=== PATIENT | male | born 1935 | race Caucasian/White ===

== ENCOUNTER 2017-10-18 10:03 | Day surgery (SDC) | payer MEDICARE, OTHER ==
[2017-10-18] VITALS (649 sets, daily range): BP systolic 140–164; BP diastolic 75–99; PULSE 59–76; TEMP 98–98.8; O2SAT 77–100
[~2017-10-18] VITALS: Ht 172.8 cm; Wt 75.8 kg
[~2017-10-18 10:03] MED LIST: AMITRIPTYLINE H10 M1 PO; B-12 500 MCG PO; CEFTIN500 MG PO; FERROUS SU325 MG/TAB PO; FOLIC ACID PO; MIRAPEX PO; MVI; PAIN MED; PYRIDIUM 100MG100 MG PO; RANITIDINE HYD150 MG PO; VITAMIN C500 MG PO; ZANTAC 150MG T150 MG PO; ZOCOR 20MG20 MG PO
[2017-10-18 10:27] LABS: HEMATOCRIT 41.9 % (42.0-52.0); HEMOGLOBIN 14.1 g/dl (13.5-18.0); MEAN CELL VOLUME 91 fl (80.0-100.0); MEAN CORPUSCULAR HEMOGLOBIN 31 pg (27.0-31.0); MEAN CORPUSCULAR HGB CONC 34 g/dl (33.0-37.0); MEAN PLATELET VOLUME 9.3 fl (7.4-10.4); PLATELET COUNT 201 K/mm3 (130-400); RED BLOOD COUNT 4.61 M/mm3 (4.20-5.60); REDCELL DISTRIBUTION WIDTH-CV 12.4 % (11.5-14.5)
[2017-10-18 10:36] LABS: CALCIUM 9.4 mg/dL (8.4-10.2); POTASSIUM 4.5 mmol/L (3.4-5.0)
[2017-10-18] MEDS ORDERED: PLAVIX 75MG TAB75 MG PO (10:42)
[2017-10-18] MEDS ORDERED: LOPRESSOR HCT 21 TA1 PO (10:42)
[2017-10-18] MEDS ORDERED: IMDUR 30MG30 MG/TAB PO (10:43)
[2017-10-19] VITALS (649 sets, daily range): BP systolic 141–152; BP diastolic 60–81; PULSE 60–84; TEMP 97.2–97.7; O2SAT 76–100
[2017-10-19 05:57] LABS: BASO % 0.3 % (0.0-2.0); EOS # 0.2 (0.0-0.7); EOS % 3.2 % (0-4.0); GRAN # 4.5 (1.4-6.5); GRAN % 64.4 % (42.2-75.2); HEMATOCRIT 37.4 % (42.0-52.0); HEMOGLOBIN 12.7 g/dl (13.5-18.0); LYMPH # 1.5 (1.2-3.4); LYMPH % 20.9 % (20.0-51.0); MEAN CELL VOLUME 91 fl (80.0-100.0); MEAN CORPUSCULAR HEMOGLOBIN 31 pg (27.0-31.0); MEAN CORPUSCULAR HGB CONC 34 g/dl (33.0-37.0); MEAN PLATELET VOLUME 9.5 fl (7.4-10.4); MONO # 0.8 (0.1-0.6); MONO % 11.1 % (1.7-9.3); PLATELET COUNT 170 K/mm3 (130-400); RED BLOOD COUNT 4.12 M/mm3 (4.20-5.60); REDCELL DISTRIBUTION WIDTH-CV 12.4 % (11.5-14.5)
[2017-10-19 06:14] LABS: CREATININE, serum 0.9 mg/dL (0.66-1.25); POTASSIUM 4.5 mmol/L (3.4-5.0)
== END 2017-10-19 12:12 | disposition home or self-care (01) ==
LOC: COL.CAR 10:03 → ICU 12:20 → COL.CAR 10-19 12:12
PROVIDERS: Internal Medicine Cardiovascular Disease; Internal Medicine Interventional Cardiology
DX: I25.119 Atherosclerotic heart disease of native coronary artery with unspecified angina pectoris (principal); D46.4 Refractory anemia, unspecified; Z79.82 Long term (current) use of aspirin; M79.604 Pain in right leg; M79.605 Pain in left leg; I44.7 Left bundle-branch block, unspecified; Z82.49 Family history of ischemic heart disease and other diseases of the circulatory system; E78.5 Hyperlipidemia, unspecified; I25.2 Old myocardial infarction; Z68.26 Body mass index [BMI] 26.0-26.9, adult
CPT/HCPCS: OP; C9600; J2250; J3010; Q9967

== ENCOUNTER 2020-02-03 08:30 | Outpatient (RCR) | payer MEDICARE, OTHER ==
[2020-01-01 12:57] VITALS: BP 123/71; PULSE 83; TEMP 98.3
[2020-01-02 08:17] VITALS: BP 116/68; PULSE 86; TEMP 98.1
[2020-01-03 08:17] VITALS: BP 109/67; PULSE 83; TEMP 99.2
[2020-01-04 08:30] VITALS: BP 130/75; PULSE 66; TEMP 98.4
[2020-01-04 09:25] LABS: MEAN CELL VOLUME 92 fl (80.0-100.0); MEAN CORPUSCULAR HGB CONC 32 g/dl (33.0-37.0); MEAN PLATELET VOLUME 8.3 fl (7.4-10.4); PLATELET COUNT 306 K/mm3 (130-400)
[2020-01-04 09:51] LABS: ERYTHROCYTE SEDIMENTATION RATE 91 mm/hr (0-30); HEMATOCRIT 27.7 % (42.0-52.0); HEMOGLOBIN 8.9 g/dl (13.5-18.0); MEAN CORPUSCULAR HEMOGLOBIN 30 pg (27.0-31.0)
[2020-01-05 08:39] VITALS: BP 109/69; PULSE 78; TEMP 98.3
[2020-01-06 11:40] VITALS: BP 111/78; PULSE 92; TEMP 98.3
[2020-01-07 08:49] VITALS: BP 109/67; PULSE 84; TEMP 97.9
--- NOTE | 2020-01-08 08:30 | NUR ---
PICC intact right upper arm with sterile dressing change done with insertion site cleansed with chloraprep x 1, chlorhexidine impregnated disk applied, skin prep, stat lock, and tegaderm applied. no signs or symptoms of IV complications noted. no concerns voiced. re-wrapped with dipika to protect catheter.
[2020-01-08 08:34] VITALS: BP 130/69; PULSE 75; TEMP 98.2
[2020-01-09 08:36] VITALS: BP 139/80; PULSE 89; TEMP 97.9
[2020-01-10 09:13] VITALS: BP 121/64; PULSE 68; TEMP 98
[2020-01-11 08:52] VITALS: BP 148/83; PULSE 73; TEMP 98.9
[2020-01-12 08:58] VITALS: BP 131/77; PULSE 74; TEMP 98.7
[2020-01-13 09:05] VITALS: BP 134/69; PULSE 65; TEMP 97.6
[2020-01-14 08:40] VITALS: BP 114/70; PULSE 73; TEMP 98.6
[2020-01-15 08:34] VITALS: BP 107/62; PULSE 73; TEMP 98.3
[2020-01-16 09:26] VITALS: BP 110/48; PULSE 77; TEMP 98.1
[2020-01-17 08:20] VITALS: BP 112/69; PULSE 78; TEMP 97.7
[2020-01-18 08:30] VITALS: BP 121/73; PULSE 73; TEMP 98.6
[2020-01-18 08:53] LABS: MEAN CELL VOLUME 92 fl (80.0-100.0); MEAN CORPUSCULAR HGB CONC 32 g/dl (33.0-37.0); MEAN PLATELET VOLUME 8.5 fl (7.4-10.4); PLATELET COUNT 388 K/mm3 (130-400); RED BLOOD COUNT 3.31 M/mm3 (4.20-5.60); REDCELL DISTRIBUTION WIDTH-CV 14.5 % (11.5-14.5)
[2020-01-18 09:10] LABS: HEMATOCRIT 30.3 % (42.0-52.0); HEMOGLOBIN 9.6 g/dl (13.5-18.0); MEAN CORPUSCULAR HEMOGLOBIN 29 pg (27.0-31.0)
[2020-01-18 09:39] LABS: ERYTHROCYTE SEDIMENTATION RATE 48 mm/hr (0-30)
[2020-01-19 08:46] VITALS: BP 132/81; PULSE 79; TEMP 98.7
[2020-01-20 08:55] VITALS: BP 127/76; PULSE 77; TEMP 98.9
[2020-01-21 08:31] VITALS: BP 168/90; PULSE 80; TEMP 98.5
[2020-01-22 09:10] VITALS: BP 133/75; PULSE 70; TEMP 98.3
[2020-01-23 08:30] VITALS: BP 118/71; PULSE 74; TEMP 98.1
[2020-01-24 08:40] VITALS: BP 122/71; PULSE 71; TEMP 98.6
[2020-01-25 08:44] VITALS: BP 153/81; PULSE 74; TEMP 98.3
[2020-01-26 08:30] VITALS: BP 165/81; PULSE 65; TEMP 98.8
[2020-01-27 08:36] VITALS: BP 165/81; PULSE 69; TEMP 98
[2020-01-28 08:33] VITALS: BP 145/74; PULSE 68; TEMP 97.9
--- NOTE | 2020-01-29 08:30 | NUR ---
PICC intact right upper arm with sterile dressing change done with insertion site cleansed with chloraprep x 1, chlorhexidine impregnated disk applied, skin prep, stat lock, and tegaderm applied. no signs or symptoms of IV complications noted. no concerns voiced. re-wrapped with dipika to protect catheter. to continue with cares in [place]. voiced understanding of instructions.
[2020-01-29 08:40] VITALS: BP 155/82; PULSE 61; TEMP 98.4
[2020-01-30 08:40] VITALS: BP 143/75; PULSE 69; TEMP 98.6
[2020-01-31 08:35] VITALS: BP 149/76; PULSE 66; TEMP 98.4
[2020-02-01 08:30] VITALS: BP 148/88; PULSE 65; TEMP 98.5
[2020-02-02 08:52] VITALS: BP 176/108; PULSE 65; TEMP 98.4
[~2020-02-03] VITALS: Ht 167.6 cm; Wt 67.7 kg
[~2020-02-03 08:30] MED LIST changes: +ALDACTONE 25MG25 M1 PO; +ASPIRIN 32325 MG/TA1 PO; +CRESTOR20 MG PO; +DIGITEK0.25 MG PO; +ENTRESTO 97 MG1 EACH PO; +FOLIC ACID 11 MG/TA1 PO; +IMDUR 30MG30 MG/TAB PO; +LOPRESSOR HCT 21 TA1 PO; +NATURAL IRON65 MG; +PLAVIX 75MG TAB75 MG PO; +PRILOSEC 20MG20 MG PO; +RANEXA 500MG T500 MG PO; +ROCEPHIN 2GM VIAL21 IJ; +SEROQUEL 2525 MG/TAB PO; +TOPROL XL 25MG25 MG PO; +TOPROL XL 50MG50 MG PO; +TYLENOL 500MG500 MG PO; +ULTRAM 50MG TAB50 MG PO
[2020-02-03 08:40] VITALS: BP 151/73; PULSE 63; TEMP 98.2
[2020-02-03 09:15] LABS: BASO % 0.4 % (0.0-2.0); EOS # 0.1 (0.0-0.7); EOS % 2.8 % (0-4.0); GRAN # 2.7 (1.4-6.5); GRAN % 58.7 % (42.2-75.2); HEMOGLOBIN 10.1 g/dl (13.5-18.0); LYMPH # 1.4 (1.2-3.4); LYMPH % 28.9 % (20.0-51.0); MEAN CELL VOLUME 90 fl (80.0-100.0); MEAN CORPUSCULAR HEMOGLOBIN 28 pg (27.0-31.0); MEAN CORPUSCULAR HGB CONC 32 g/dl (33.0-37.0); MEAN PLATELET VOLUME 8.6 fl (7.4-10.4); MONO # 0.4 (0.1-0.6); PLATELET COUNT 246 K/mm3 (130-400); RED BLOOD COUNT 3.56 M/mm3 (4.20-5.60); REDCELL DISTRIBUTION WIDTH-CV 14.8 % (11.5-14.5)
[2020-02-03 09:25] LABS: HEMATOCRIT 31.9 % (42.0-52.0)
[2020-02-03 10:12] LABS: ERYTHROCYTE SEDIMENTATION RATE 1 mm/hr (0-30)
[2020-03-22] MEDS ORDERED: DOXYCYCLINE HY100 MG PO (09:09)
[2020-03-22] MEDS ORDERED: PRILOSEC 20MG20 MG PO (09:10)
== END 2020-02-04 07:00 | disposition home or self-care (01) ==
LOC: EUO 08:30
PROVIDERS: Orthopaedic Surgery
DX: Z95.828 Presence of other vascular implants and grafts (principal)
CPT/HCPCS: C1751; J0696

== ENCOUNTER 2020-03-17 07:30 | Inpatient (IN) | payer MEDICARE, OTHER ==
[~2020-03-17] VITALS: Ht 172.7 cm; Wt 66.1 kg
[2020-03-17 15:39] VITALS: BP 124/75; PULSE 88; TEMP 98.5
[2020-03-17] MEDS ORDERED: NAPRELAN500 MG PO (16:18)
--- NOTE | 2020-03-17 16:53 | NUR ---
Patient arrived to floor with admissions via wheelchair. Patient is alert and oriented, answers questions appropriately. Patient is able to paricipate in admission assessment and answer admssion questions. Called SUDHAKAR and reported patient had arrived and was ready for PICC placement. Patient says he has had a PICC in the past and is agreeable to having one placed for this stay. Patient reports that his pain is well controlled at this time and denies further needs, call light within reach.
[2020-03-17 17:42] LABS: BASO % 0.2 % (0.0-2.0); EOS % 0.5 % (0-4.0); GRAN # 4.4 (1.4-6.5); GRAN % 68.8 % (42.2-75.2); HEMOGLOBIN 11.5 g/dl (13.5-18.0); LYMPH # 1.3 (1.2-3.4); LYMPH % 20.8 % (20.0-51.0); MEAN CELL VOLUME 87 fl (80.0-100.0); MEAN CORPUSCULAR HEMOGLOBIN 28 pg (27.0-31.0); MEAN CORPUSCULAR HGB CONC 33 g/dl (33.0-37.0); MEAN PLATELET VOLUME 8.6 fl (7.4-10.4); MONO # 0.6 (0.1-0.6); MONO % 9.4 % (1.7-9.3); PLATELET COUNT 303 K/mm3 (130-400); RED BLOOD COUNT 4.06 M/mm3 (4.20-5.60); REDCELL DISTRIBUTION WIDTH-CV 15.2 % (11.5-14.5)
[2020-03-17 17:44] LABS: HEMATOCRIT 35.4 % (42.0-52.0)
[2020-03-17 17:45] LABS: INR 1.2 (0.8-3.0); PROTHROMBIN TIME 13.8 SECONDS (9.7-12.8)
[2020-03-17 17:57] LABS: CALCIUM 9.3 mg/dL (8.4-10.2); CREATININE, serum 1.1 (0.66-1.25); POTASSIUM 4.8 mmol/L (3.4-5.0)
--- NOTE | 2020-03-17 18:43 | NUR ---
Vancomycin Initial Dosing Pharmacy Note Ordering provider: Iván Taylor MD Indication/duration: JOINT INFECTION LABS: WBC 6.3, SCr 1.1, CrCl ~40 Recommendation: vancomycin 15 mg/kg Loading dose: 1.25 grams Maintenance dose: 1 gram every 24 hours Trough goal: 15-20 ug/mL. trough 03/20 @ 9709
[2020-03-17 19:34] VITALS: BP 134/72; PULSE 86; TEMP 97.4
--- NOTE | 2020-03-17 19:35 | NUR ---
Asssessment complete. Resting in bed, watching television. Denies needs at this time.
[2020-03-17 23:23] VITALS: BP 135/70; PULSE 54; TEMP 97.4
[2020-03-18] VITALS (11 sets, daily range): BP systolic 108–157; BP diastolic 30–75; PULSE 57–94; TEMP 97.8–100.9
[2020-03-18 06:52] LABS: BASO % 0.4 % (0.0-2.0); EOS # 0.1 (0.0-0.7); EOS % 1.8 % (0-4.0); GRAN # 3.1 (1.4-6.5); GRAN % 55.5 % (42.2-75.2); HEMATOCRIT 36.5 % (42.0-52.0); HEMOGLOBIN 11.8 g/dl (13.5-18.0); LYMPH # 1.7 (1.2-3.4); LYMPH % 30.5 % (20.0-51.0); MEAN CELL VOLUME 87 fl (80.0-100.0); MEAN CORPUSCULAR HEMOGLOBIN 28 pg (27.0-31.0); MEAN CORPUSCULAR HGB CONC 32 g/dl (33.0-37.0); MEAN PLATELET VOLUME 8.8 fl (7.4-10.4); MONO # 0.7 (0.1-0.6); MONO % 11.6 % (1.7-9.3); PLATELET COUNT 319 K/mm3 (130-400); RED BLOOD COUNT 4.19 M/mm3 (4.20-5.60); REDCELL DISTRIBUTION WIDTH-CV 15.2 % (11.5-14.5)
[2020-03-18 07:03] LABS: CALCIUM 9.6 mg/dL (8.4-10.2); CREATININE, serum 1.14 (0.66-1.25); POTASSIUM 4.1 mmol/L (3.4-5.0)
--- NOTE | 2020-03-18 11:37 | NUR ---
PATIENT TO ROOM 327 PER BED WITH REPORT FROM [facility]ONIQUE [facility]STELL[facility] PACU. PT IS A/O X3, LUNGS CTA, BOWEL SOUNDS HYPO, DRESSING TO RIGHT KNEE CDI WITH OCCLUSIVE DRESSING IN PLACE AND KNEE IMMOBILIZER IN PLACE, IV TO PUMP PER ORDERS.NO ADDTIONAL ORDERS.
--- NOTE | 2020-03-18 16:46 | NUR ---
pt c/o unable to void while getting bladder scanner pt voided 200 mls in urinal. bladder scanned per pt request and found 760 mls residual. straight cath preformed and removed 700 mls clear yellow urine. pt reported feeling empty and relife.
--- NOTE | 2020-03-18 17:03 | NUR ---
WARREN met with the patient and the patient's , Jayne. The patient and Jayne live in [place]. The patient has a walker and is independent with ADLs. The patient's PCP is Dr. Hernández and patient receive medications from [facility] with no difficulties. The patient states they have advanced directives. The plan is to go home at discharge. The patient maybe needing IV antibiotics. The [facility] and wanted to go there again. WARREN contacted Marge with [facility] about the patient. Marge will let the weekend shift know in case the patient discharges over the weekend. WARREN contacted Karolina CASTELLANOS CM to inquire about preauthorization. There is no pre-auth needed if the primary insurance is Medicare which is for the patient. The patient and his are in the process of moving and will move to [place] on 03/30. The patient will need to switch the IV antibiotics to an [place] facility at that time. There are no addtional needs at this time.
--- NOTE | 2020-03-18 19:55 | NUR ---
Received report from JASMIN Xiao. Pt on the phone and lying in bed resting.
[2020-03-19 00:31] VITALS: BP 144/72; PULSE 94; TEMP 99.7
--- NOTE | 2020-03-19 01:40 | NUR ---
Pt got up and ambulated to the bathroom and back. Pt tolerated this very well. Pt stated that his pain was ok at this time. New ice pack was placed on his right knee at this time. Pt is back in bed and has his call light within reach.
[2020-03-19 04:36] VITALS: BP 128/89; PULSE 91; TEMP 99.8
--- NOTE | 2020-03-19 06:33 | NUR ---
Pt took his morning medications and requested something for pain. Pt was given pain medication at this time. Pt is lying in bed rest. His urinal was emptied at this time. Pt has his call light within reach and his bed is in lowest position.
--- NOTE | 2020-03-19 06:50 | NUR ---
Reported off to JASMIN cOhoa. Pt has his call light within reach and his bed is in lowest position and he is getting ready for breakfast.
[2020-03-19 07:29] LABS: BASO % 0.2 % (0.0-2.0); EOS # 0.1 (0.0-0.7); EOS % 0.9 % (0-4.0); GRAN # 3.6 (1.4-6.5); GRAN % 65.1 % (42.2-75.2); HEMOGLOBIN 10.6 g/dl (13.5-18.0); LYMPH % 17.9 % (20.0-51.0); MEAN CELL VOLUME 86 fl (80.0-100.0); MEAN CORPUSCULAR HEMOGLOBIN 27 pg (27.0-31.0); MEAN CORPUSCULAR HGB CONC 32 g/dl (33.0-37.0); MEAN PLATELET VOLUME 8.4 fl (7.4-10.4); MONO # 0.9 (0.1-0.6); MONO % 15.7 % (1.7-9.3); PLATELET COUNT 273 K/mm3 (130-400); RED BLOOD COUNT 3.87 M/mm3 (4.20-5.60); REDCELL DISTRIBUTION WIDTH-CV 14.9 % (11.5-14.5)
--- NOTE | 2020-03-19 07:30 | NUR ---
Patient up to sink with one assist and walker. PICC line to DI without complications. RLE with dipika wrap and immobilizer. Denies pain at this time. Denies further needs at this time.
[2020-03-19 07:35] LABS: CALCIUM 9.1 mg/dL (8.4-10.2); POTASSIUM 4.2 mmol/L (3.4-5.0)
[2020-03-19 07:43] LABS: HEMATOCRIT 33.3 % (42.0-52.0)
[2020-03-19 08:15] VITALS: BP 108/62; PULSE 88; TEMP 98.1
[2020-03-19 12:14] VITALS: BP 104/66; PULSE 78; TEMP 97.7
[2020-03-19 17:00] VITALS: BP 110/61; PULSE 84; TEMP 99.4
--- NOTE | 2020-03-19 18:37 | NUR ---
Patient has done well throughout the day. Minimal needs. Has been up ambulating in halls with stand by assist and walker, steady gait. Immobilizer in place throughout the day. PICC line maintained without complications to DI. Denies further needs at this time. WIll report off to awake overnight monitor.
[2020-03-19 19:44] VITALS: BP 161/76; PULSE 101; TEMP 98.4
--- NOTE | 2020-03-19 20:00 | NUR ---
Report received, assumed care for welder apprentice. Assessment complete. VS stable. A&Ox3. Denies shortness of breath/nausea. Rating pain to right knee 6/10-described as constant throbbing-jovanna given per dr order. Fresh ice pack applied. SCD/Danny wise. Dressing to right knee-gauze/dipika-CDI. Plan of care discussed for this shift to include pain control/ambulation. Verbalizes understanding. Call light in reach. Will monitor.
--- NOTE | 2020-03-20 00:15 | NUR ---
PICC to right upper arm noted to flush hard-flushed at this time with 20mls NS each port-no blood return noted. States there has been difficulty getting blood return the last three draws-lab has been doing peripheral draws.
[2020-03-20 00:19] VITALS: BP 126/61; PULSE 68; TEMP 97.6
--- NOTE | 2020-03-20 02:00 | NUR ---
Up to ambulate-stand by assist/gait belt/walker. Ambulated approx 150 feet without difficulty.
[2020-03-20 03:55] VITALS: BP 121/59; PULSE 66; TEMP 98.1
--- NOTE | 2020-03-20 04:00 | NUR ---
Has rested well this shift. Currently rating pain to right knee 5/10-described as sharp intermittent stabbing pain-medicated with Hydrocodone per dr order. Immobolizer has remained on per request. Fresh ice pack applied. Denies any other c/o at this time. Call light in reach. Will monitor.
--- NOTE | 2020-03-20 05:10 | NUR ---
Resting eyes closed post pain medication. No s/s of pain noted.
--- NOTE | 2020-03-20 07:55 | NUR ---
Up in room with use of walker. Gait steady. Denies pain at this time. Patient says that he will go for a walk in the halls here in a little bit. Dressing to right knee CDI. Swelling noted to right knee. Brace in place to right knee. Patient denies needs.
[2020-03-20 07:57] VITALS: BP 109/63; PULSE 87; TEMP 98
[2020-03-20 09:18] LABS: BASO % 0.4 % (0.0-2.0); EOS # 0.2 (0.0-0.7); GRAN # 3.6 (1.4-6.5); GRAN % 67.5 % (42.2-75.2); LYMPH % 19.2 % (20.0-51.0); MEAN CELL VOLUME 87 fl (80.0-100.0); MEAN CORPUSCULAR HEMOGLOBIN 28 pg (27.0-31.0); MEAN CORPUSCULAR HGB CONC 32 g/dl (33.0-37.0); MEAN PLATELET VOLUME 8.6 fl (7.4-10.4); MONO # 0.5 (0.1-0.6); MONO % 9.7 % (1.7-9.3); PLATELET COUNT 288 K/mm3 (130-400); RED BLOOD COUNT 3.91 M/mm3 (4.20-5.60)
[2020-03-20 09:24] LABS: HEMATOCRIT 34.1 % (42.0-52.0)
[2020-03-20 09:36] LABS: CALCIUM 9.5 mg/dL (8.4-10.2); CREATININE, serum 1.29 (0.66-1.25)
--- NOTE | 2020-03-20 10:13 | NUR ---
Sitting up in bed watching TV. Patient has been up in halls ambulating with walker, gait steady, and up in room. Patient denies needs at this time.
[2020-03-20 11:26] VITALS: BP 102/67; PULSE 78; TEMP 98.5
--- NOTE | 2020-03-20 11:27 | NUR ---
Lying in bed with eyes open. Having minimal pain, declines need for pain medication at this time and will ask when he needs the pain medication. Dressing to right knee CDI with brace in place. Denies any additional needs.
[2020-03-20 13:41] LABS: CREATININE, serum 1.24 (0.66-1.25); FRACTIONAL EXCRETION OF NA+ 0.3 %
[2020-03-20 16:26] VITALS: BP 103/57; PULSE 78; TEMP 98.8
--- NOTE | 2020-03-20 17:14 | NUR ---
Sitting up in bed with eyes open. Minimal pain at this time. Ice pack to right knee. Dressing to right knee CDI, brace in place. Denies any needs at this time.
--- NOTE | 2020-03-20 20:00 | NUR ---
Assessment complete. Resting in bed, watching television. PRN pain chief medical director for C/O pain RLE. Denies other needs at this time.
[2020-03-20 20:03] VITALS: BP 127/65; PULSE 78; TEMP 99
[2020-03-21 00:55] VITALS: BP 132/71; PULSE 70; TEMP 98.1
[2020-03-21 04:05] VITALS: BP 104/51; PULSE 94; TEMP 97.8
[2020-03-21 04:30] VITALS: BP 136/76; PULSE 74; TEMP 98.5
[2020-03-21 07:48] LABS: BASO % 0.2 % (0.0-2.0); EOS # 0.2 (0.0-0.7); GRAN # 3.4 (1.4-6.5); HEMOGLOBIN 10.4 g/dl (13.5-18.0); LYMPH # 1.2 (1.2-3.4); LYMPH % 21.7 % (20.0-51.0); MEAN CELL VOLUME 88 fl (80.0-100.0); MEAN CORPUSCULAR HEMOGLOBIN 28 pg (27.0-31.0); MEAN CORPUSCULAR HGB CONC 32 g/dl (33.0-37.0); MEAN PLATELET VOLUME 8.7 fl (7.4-10.4); MONO # 0.6 (0.1-0.6); MONO % 10.7 % (1.7-9.3); PLATELET COUNT 313 K/mm3 (130-400); RED BLOOD COUNT 3.76 M/mm3 (4.20-5.60); REDCELL DISTRIBUTION WIDTH-CV 14.9 % (11.5-14.5)
[2020-03-21 07:56] LABS: CALCIUM 9.1 mg/dL (8.4-10.2); CREATININE, serum 1.08 (0.66-1.25); POTASSIUM 3.9 mmol/L (3.4-5.0)
[2020-03-21 08:05] VITALS: BP 133/64; PULSE 78; TEMP 98.4
--- NOTE | 2020-03-21 08:22 | NUR ---
Vancomycin Follow-up Pharmacy Note Current regimen: Vancomycin 1 gm IV q24h Vancomycin trough: 8.29 Adjustments: Will increase Vancomycin to 1 gm IV q12h. Pharmacy will continue to monitor and check a Vancomycin trough on 03/23/20.
[2020-03-21 11:36] VITALS: BP 114/66; PULSE 69; TEMP 98.2
--- NOTE | 2020-03-21 14:31 | NUR ---
Architectural Engineer attended clinical rounds with Hospitalist. SW followed up with patient about IV antibiotics and patient requested SW call his , Jayne (ph#[phone]). SW contacted Jayne who advised the plan is for [facility] but that they will be moving to [place] next week. Jayne would like appointments set up at [facility] if possible starting the . WARREN contacted [facility] scheduling (ph#[phone] option 3) and was advised appointments could not be set up until orders are faxed to #[phone]. WARREN will continue to follow.
[2020-03-21] MEDS ORDERED: NORCO 325 MG-51 TAB PO (15:00)
[2020-03-21] MEDS ORDERED: ROCEPHIN 2GM VIAL21 IV ×2 (15:26→16:03)
[2020-03-21 15:36] VITALS: BP 121/66; PULSE 66; TEMP 97
[2020-03-21] MEDS ORDERED: ROCEPHIN 2GM VIAL21 IJ (16:37)
--- NOTE | 2020-03-21 17:09 | NUR ---
The patient it to tentatively discharge today, 03/21. The patient is to go home with his . The patient will have outpatient IV antibiotics at [facility] beginning at 0830March 22. WARREN faxed orders to [facility]. They will not receive the fax until 03/22. WARREN to follow up tomorrow morning.
--- NOTE | 2020-03-21 18:37 | NUR ---
Patient has done well throughout the day. Has been up ambulating with walker and immobilizer in place. Pain medications given throughout the day. Contacted Dr. Trinidad this afternoon for medication orders for discharge. Orders entered. Picc line to DI without complications. Denies further needs at this time. WIll report off to mini shifter.
--- NOTE | 2020-03-21 20:22 | NUR ---
Patient's discharge instuctions went over with patient. Questions answered. Follow up appointments for infusions and physician visit went over with patient. PICC line to DI is in place for discharge. All belongings sent with patient. Pain medication prescription sent with patient. Surgical staff assisted patient via wheelchair to personal vehicle with driving.
[2020-03-22] MEDS ORDERED: DOXYCYCLINE HY100 MG PO (09:09)
[2020-03-22] MEDS ORDERED: PRILOSEC 20MG20 MG PO (09:10)
--- NOTE | 2020-03-24 15:22 | NUR ---
Configuration Manager collaborated with Khadra at Dr. Leonard's office to obtain updated orders, per [facility]'s request. Khadra faxed orders to [facility]. WARREN contacted Mulu, at centralized scheduling who confirmed orders were received and processed. Appointment was set at [facility] for 03/31/20 @ 1345 with a 1325 check in time. WARREN contacted patient's , Jayne to provide appointment time. Jayne is agreeable to this appointment time and advised she also spoke with Mulu, who provided directions to [facility]. No additional needs at this time.
== END 2020-03-21 20:25 | disposition home or self-care (01) | DRG 486 ==
LOC: SURG 07:30 → JCC 15:11
PROVIDERS: Physician Assistant; Student in an Organized Health Care Education/Training Program; ADMIT Orthopaedic Surgery
PROC: 02HV33Z Insertion of Infusion Device into Superior Vena Cava, Percutaneous Approach (ICD-10-PCS; 2020-03-17)
PROC: 3E0U029 Introduction of Other Anti-infective into Joints, Open Approach (ICD-10-PCS; 2020-03-18)
PROC: 0SBC0ZZ Excision of Right Knee Joint, Open Approach (ICD-10-PCS; principal; 2020-03-18 08:00)
DX: T84.53XA Infection and inflammatory reaction due to internal right knee prosthesis, initial encounter (principal); I50.22 Chronic systolic (congestive) heart failure; D64.9 Anemia, unspecified; I25.10 Atherosclerotic heart disease of native coronary artery without angina pectoris; I73.9 Peripheral vascular disease, unspecified; K21.9 Gastro-esophageal reflux disease without esophagitis; M19.90 Unspecified osteoarthritis, unspecified site; Y83.9 Surgical procedure, unspecified as the cause of abnormal reaction of the patient, or of later complication, without mention of misadventure at the time of the procedure; N40.1 Benign prostatic hyperplasia with lower urinary tract symptoms; R33.8 Other retention of urine; F22 Delusional disorders; M54.5 Low back pain; Z79.82 Long term (current) use of aspirin; Z79.891 Long term (current) use of opiate analgesic; Z95.5 Presence of coronary angioplasty implant and graft; Z95.820 Peripheral vascular angioplasty status with implants and grafts; Z88.2 Allergy status to sulfonamides; Z88.6 Allergy status to analgesic agent
CPT/HCPCS: 99221; 99231-AI; 99232-AI; A9284; C1751; J0692; J2250; J2704; J3010; J3260; J3370; J7030; J7050; J7120; L1830